=== PATIENT | female | born 1980 | race Caucasian/White ===

== ENCOUNTER 2021-10-15 07:29 | Day surgery (SDC) | payer BC ==
[2021-10-15] MEDS ORDERED: Transderm Scop 1.5MG Patch TOP ONE (07:30)
[2021-10-15] MEDS ORDERED: Lactated Ringers 1,000 ML IV SCH (08:00)
[2021-10-15] MEDS ORDERED: CLINDAMYCIN-D5W 900 MG/50 ML*** 900 MG/50 ML BAG IV SCH (09:00)
[2021-10-15] MEDS ORDERED: Xylocaine-Mpf 2% 5 Ml Vial ONE (09:01)
[2021-10-15] MEDS ORDERED: Versed 2 MG/2 ML Injection ONE (09:01)
[2021-10-15] MEDS ORDERED: DIPRIVAN 200 MG/20 ML IV ONE (09:01)
[2021-10-15] MEDS ORDERED: SUBLIMAZE 100 MCG/2 ML ONE (09:01)
[2021-10-15] MEDS ORDERED: Decadron 4 MG INJ ONE (09:27)
[2021-10-15] MEDS ORDERED: Zofran 4 MG/2 ML VIAL ONE (09:27)
[2021-10-15] MEDS ORDERED: TORAdol 30 mg Injection IV ONE (10:53)
[2021-10-15 11:07] VITALS: O2SAT 97
[2021-10-15 11:33] VITALS: BP 149/86; PULSE 70
--- NOTE | 2021-10-16 08:14 | OP ---
SURGERY DATE/TIME: 10/15/2021 0931 PREOPERATIVE DIAGNOSIS: Abnormal uterine bleeding. POSTOPERATIVE DIAGNOSIS: Abnormal uterine bleeding. PROCEDURES: 1) Hysteroscopy, D&C with endometrial ablation using NovaSure. 2) Removal of intrauterine device. SURGEON: Clem Purcell D.O. [place] PASTRY COOK: Ramona Patricia surgical aides teacher. ANESTHESIA: General. ESTIMATED BLOOD LOSS: Minimal. COMPLICATIONS: None. INDICATIONS: The risks, benefits, indications and alternatives of the procedure were reviewed with the patient prior to the procedure. The patient understood the risk of infection, bleeding, bowel injury, bladder injury, ureteral injury, uterine perforation, pelvic infection, thromboembolic disorder associated with the surgery however desires to have this surgery as a possible means to alleviate her current medical condition. DESCRIPTION OF PROCEDURE AND FINDINGS: At this point the patient is taken to the operating room, given general sedation, placed in the dorsal lithotomy position, prepped and draped in the usual sterile fashion. A weighted speculum is then placed in the patient's vagina and the anterior lip of the cervix is grasped with a single tooth tenaculum. Endocervical dilators were advanced through the endocervical canal as a means to dilate the cervix and at this point a 5 mm hysteroscope was then placed in through the endocervical region towards the fundal region where visualization appeared to be within normal limits with no gross abnormalities in the endometrial cavity. From this point the hysteroscope was then removed and the curette was then placed into the fundus of the uterus and all quadrants of the uterus were then curetted without complication with moderate endometrial tissue that was obtained. From this point hemostasis was obtained. At this point the NovaSure instrument was then placed in through the endocervical region towards the fundal region with a length of 6.5 cm and was engaged with a width of 3.7 cm. After engagement the machine was turned on for an ablative time of 52 seconds. At the completion of the ablation the instrument was disengaged and removed from the uterine cavity without complication. From this point all instruments were removed from the patient's vaginal region. The patient was then taken out of the dorsal lithotomy position, was taken out of anesthesia and was then taken to the recovery room in stable condition. All instruments and laps were accounted for x2. DESCRIPTION OF PROCEDURE AND FINDINGS: At this point the patient is taken to the operating room, given general sedation, placed in dorsal lithotomy position, prepped and draped in the usual sterile fashion. A weighted speculum is then placed in the patient's vagina and the anterior lip of the cervix is grasped with a single tooth tenaculum. Endocervical dilators were advanced through the endocervical canal as a means to dilate the cervix. At this point a 5 mm hysteroscope was then placed in through the fundus of the uterus where visualization revealed no gross abnormalities. From this point the hysteroscope was removed and the curette was then placed into the fundus of the uterus where curettage is performed in all quadrants of the uterus retrieving a mild amount of tissue. From this point hemostasis obtained. The NovaSure was taken and placed through the endocervical region toward the fundal region and retracted approximately 1 cm with a length of 6.5 cm and was engaged. After complete engagement the width was noted to be 4.4 cm. From this point the ablation had taken place with an ablative time of 1 minute and 3 seconds. At the completion of the ablation the instrument was disengaged and removed from the uterine cavity. From this point all instruments were removed from the patient's vaginal region. The patient was then taken out of the dorsal lithotomy position and was taken to the recovery room in stable condition. All instruments and laps were accounted for x2.
== END 2021-10-15 11:55 | disposition home or self-care (01) ==
LOC: SDC 07:29
PROVIDERS: ATTEND Obstetrics & Gynecology
DX: N93.9 Abnormal uterine and vaginal bleeding, unspecified (principal)
CPT/HCPCS: 58301; 58563; 81025; J1100; J1885; J2250; J2405; J2704; J3010; A9270-GY

== ENCOUNTER 2022-12-23 07:28 | Observation (INO) | payer BC, OTHER ==
[2022-12-23] MEDS ORDERED: Reglan 10 MG/2 ML IV ONE (07:56)
[2022-12-23] MEDS ORDERED: Transderm Scop 1.5MG Patch TOP PRN (07:56)
[2022-12-23] MEDS ORDERED: Pepcid 20 MG VIAL IV ONE (07:56)
[2022-12-23] MEDS ORDERED: CEFAZOLIN 2 GM-D5W BAG** 2 GM/50 ML ML IV SCH ×2 (08:00→08:30)
[2022-12-23 08:28] LABS: Absolute Neutrophil Ct (ANC) 5.52 x10^3/uL (1.4-6.9); BASOPHIL % 0.5 % (0.0-0.4); Basophil (Absolute #) 0.04 x10^3/uL (0-0.4); Eosinophil % 1.1 % (0.00-5.0); Eosinophil (Absolute #) 0.08 x10^3/uL (0-0.5); Hematocrit 37.1 % (35-47); Hemoglobin 12.5 g/dL (12.0-16.0); IMMATURE GRAN # 0.01 x10^3u/L (0.00-0.03); IMMATURE GRAN % 0.1 % (0.00-0.4); Lymphocyte (Absolute #) 1.33 x10^3/uL (1.0-4.6); Mean Cell Volume 90.3 fL (78-100); Mean Corpuscular Hemoglobin 30.4 pg (26-32); Mean Corpuscular Hgb Concent. 33.7 g/dL (32-36); Monocyte (Absolute #) 0.41 x10^3/uL (0.0-1.3); Monocytes % 5.5 % (0.0-12.0); Neutrophil % 74.8 % (36.0-66.0); Platelet Count 275 x10^3/uL (150-450); Red Blood Count 4.11 x10^6/uL (4.1-5.4); Red Cell Distribution Width 11.8 % (11.5-14.0); White Blood Count 7.4 x10^3/uL (4.0-10.5)
[2022-12-23 08:31] LABS: HCG URINE TEST NEGATIVE (NEGATIVE)
[2022-12-23 08:39] LABS: ALKALINE PHOSPHATASE 86 U/L (38-126); ANION GAP 10.2 MEQ/L (5-15); BLOOD UREA NITROGEN 9 mg/dL (7-17); CHLORIDE 106 mmol/L (98-107); Calcium 8.9 mg/dL (8.4-10.2); Carbon Dioxide 27 mmol/L (22-30); Creatinine 1 0.48 mg/dL (0.52-1.04); EST GLOMERULAR FILTRATION RATE > 60.0 ML/MIN; Glucose 89 mg/dL (74-106); Potassium 3.4 mmol/L (3.5-5.1); SGOT/AST 23 U/L (14-36); SGPT/ALT 25 U/L (0-35); SODIUM 140 mmol/L (137-145); Total Protein 6.6 g/dL (6.3-8.2)
[2022-12-23] MEDS: Lactated Ringers 1,000 ML IV SCH ×4 (08:56→23:24)
[2022-12-23 09:06] LABS: ABO TYPING A; Antibody Screen NEGATIVE (NEGATIVE); RH TYPING POSITIVE
[2022-12-23] MEDS ORDERED: Zemuron 100 MG/10 ML IJ ONE (10:24)
[2022-12-23] MEDS ORDERED: DIPRIVAN 200 MG/20 ML IV ONE (10:24)
[2022-12-23] MEDS ORDERED: BRIDION 200MG/2ML IV ONE (10:24)
[2022-12-23] MEDS ORDERED: SUBLIMAZE 100 MCG/2 ML IV ONE (10:24)
[2022-12-23] MEDS ORDERED: Sensorcaine 0.25% 10 ML IJ ONE (10:24)
[2022-12-23] MEDS ORDERED: Pre-Attached Lta Kit TP ONE (10:24)
[2022-12-23] MEDS ORDERED: OFIRMEV IV ONE (10:24)
[2022-12-23] MEDS ORDERED: Decadron 4 MG INJ IV ONE (10:24)
[2022-12-23] MEDS ORDERED: Zofran 4 MG/2 ML VIAL IV ONE (10:24)
[2022-12-23] MEDS ORDERED: Versed 2 MG/2 ML Injection IV ONE (10:24)
[2022-12-23] MEDS ORDERED: Astramorph-Pf 5 MG/10 ML IJ ONE (10:24)
[2022-12-23] MEDS ORDERED: Xylocaine-Mpf 2% 5 Ml Vial IJ ONE (10:24)
[2022-12-23] MEDS ORDERED: Lactated Ringers 1,000 ML IV ONE (10:24)
[2022-12-23] MEDS ORDERED: ROBINUL IV ONE (10:24)
[2022-12-23] MEDS ORDERED: EXPAREL 133 MG/10 ML VIAL IJ ONE (10:24)
[2022-12-23] MEDS ORDERED: Sodium Chloride 0.9% 10 ML FLUSH Syringe IJ PRN (14:45)
[2022-12-23] MEDS ORDERED: Narcan 0.4 MG/ML IV PRN (14:45)
[2022-12-23] MEDS ORDERED: DEMEROL 50 MG IV PRN (14:45)
[2022-12-23] MEDS ORDERED: PERCOCET TABLET 5/325MG PO PRN (14:45)
[2022-12-23] MEDS ORDERED: CLARITIN 10 MG PO PRN (14:45)
[2022-12-23] MEDS ORDERED: MORPHINE SULFATE 2 MG INJ IV PRN (14:45)
[2022-12-23] MEDS ORDERED: Zofran 4 MG/2 ML VIAL IV PRN (14:45)
[2022-12-23] MEDS ORDERED: Cyanocobalamin B-12 1000 MCG/ML IM SCH (15:00)
[2022-12-23] MEDS ORDERED: NON-FORMULARY ITEM (Semaglutide [Ozempic] 0.25 MG/0.368 ML Pen.Injctr) SQ SCH (15:00)
[2022-12-23] MEDS ORDERED: MEDICATION INTERVENTION MC SCH ×2 (15:15)
[2022-12-23] MEDS: BENADRYL 50 MG/ML IV PRN ×2 (16:47→23:44)
[2022-12-23 17:05] LABS: Appearance Cloudy (Clear); Bacteria None Seen /HPF (None Seen); Bilirubin Negative (Negative); Blood Moderate (Negative); Epithelial Cells None Seen /HPF (None Seen); Glucose, Urine Negative (Negative); Ketones 15 (Negative); Leukocyte Esterase Trace (Negative); Nitrite Negative (Negative); Ph 6.5 (4.6-8.0); Protein,Urine Dip Trace (Negative); RBC 51-100 /HPF (0-5); Specific Gravity 1.025 (1.005-1.030); Urobilinogen 0.2 mg/dL (0.2)
[2022-12-23] MEDS: CEFAZOLIN 2 GM-D5W BAG** 2 GM/50 ML ML IV SCH (17:57)
[2022-12-23 18:32] LABS: Hematocrit 37.1 % (35-47); Hemoglobin 12.2 g/dL (12.0-16.0); Mean Cell Volume 92.3 fL (78-100); Mean Corpuscular Hemoglobin 30.3 pg (26-32); Mean Corpuscular Hgb Concent. 32.9 g/dL (32-36); Mean Platelet Volume 10.4 fL (7.5-11.0); Platelet Count 283 x10^3/uL (150-450); Red Blood Count 4.02 x10^6/uL (4.1-5.4); Red Cell Distribution Width 11.9 % (11.5-14.0); White Blood Count 11.4 x10^3/uL (4.0-10.5)
[2022-12-23] MEDS: Nubain 10 MG/ML IV PRN (20:40)
[2022-12-23] MEDS: Docusate Sodium 100 MG PO SCH (22:29)
[2022-12-23] MEDS: Mylicon 80MG PO SCH (22:29)
[2022-12-23] MEDS: Reglan 10 MG PO SCH (22:29)
[2022-12-24] MEDS: Nubain 10 MG/ML IV PRN (03:43)
[2022-12-24] MEDS: CEFAZOLIN 2 GM-D5W BAG** 2 GM/50 ML ML IV SCH (03:44)
[2022-12-24 03:58] VITALS: RESP 16
[2022-12-24 04:54] LABS: Hematocrit 33.3 % (35-47); Hemoglobin 11.2 g/dL (12.0-16.0); Mean Cell Volume 89.8 fL (78-100); Mean Corpuscular Hemoglobin 30.2 pg (26-32); Mean Corpuscular Hgb Concent. 33.6 g/dL (32-36); Mean Platelet Volume 10.7 fL (7.5-11.0); Platelet Count 272 x10^3/uL (150-450); Red Blood Count 3.71 x10^6/uL (4.1-5.4); Red Cell Distribution Width 12.1 % (11.5-14.0); White Blood Count 6.3 x10^3/uL (4.0-10.5)
[2022-12-24 05:13] LABS: ALBUMIN 3.6 g/dL (3.5-5.0); ALKALINE PHOSPHATASE 80 U/L (38-126); BLOOD UREA NITROGEN 6 mg/dL (7-17); CHLORIDE 102 mmol/L (98-107); Calcium 8.6 mg/dL (8.4-10.2); Carbon Dioxide 28 mmol/L (22-30); EST GLOMERULAR FILTRATION RATE > 60.0 ML/MIN; Glucose 91 mg/dL (74-106); Potassium 3.2 mmol/L (3.5-5.1); SGOT/AST 22 U/L (14-36); SGPT/ALT 22 U/L (0-35); SODIUM 136 mmol/L (137-145)
[2022-12-24] MEDS: Reglan 10 MG PO SCH (05:58)
[2022-12-24] MEDS: Mylicon 80MG PO SCH (05:58)
[2022-12-24 06:53] VITALS: O2SAT 97
[2022-12-24 07:21] VITALS: BP 117/73; PULSE 59; TEMP 97.6
--- NOTE | 2022-12-24 07:43 | PCM.NOTE ---
Date and Time: 12/24/22 0738 Subjective Assessment: pod 1 sp lash b/l salpingectomy pt resting in bed and has been ambulating and tolerating diet vss afebrile abd; soft incision c/d/intact ext; no clubbing cyanosis or edema a/p sp laparoscopic supracervical hysterectomy b/l salpingectomy ' dc home today fu office in 2 wks Objective Exam Wound Assessment: Skin/Wound Assessment Wound/Incision Assessment Start: 12/23/22 14:04 Text: Status: Active Freq: Q6H Protocol: Document 12/24/22 02:00 LB (Rec: 12/24/22 02:48 LB [id number]) Wound/Incision Assessment Anterior Abdomen Wound Assessment Shift Assessment Wound Type Incision Wound Stage Non Pressure Wound Dressing Status Dry & Intact Drainage Amount None General Appearance Well Approximated,Open to air Wound Bed Greatest Portion Red (Granulation) Surrounding Tissue [place] Comment open to air x4 Wound Photo Photo Taken No OBJECTIVE DATA Vital Signs: Vital Signs - 24 hr Temp Pulse Resp BP Pulse Ox 12/24/22 07:20 97.6 F 59 L 16 117/73 97 12/24/22 06:51 97 12/24/22 03:57 96.0 F 67 16 126/73 96 12/23/22 23:59 97.5 F 56 L 18 121/75 97 12/23/22 19:00 97.5 F 61 16 117/71 98 12/23/22 15:30 97.6 F 76 16 130/63 93 L 12/23/22 14:36 97.6 F 58 L 16 121/73 94 L 12/23/22 14:25 59 L 16 128/82 96 12/23/22 13:41 97.6 F 63 16 122/80 96 12/23/22 13:39 97.2 F 57 L 18 122/80 94 L 12/23/22 13:37 97.8 F 63 16 122/50 93 L 12/23/22 08:47 97.8 F 71 18 130/86 97 12/23/22 08:34 97.8 F 71 18 130/86 97 Pain Assessment - Last Documented Pain Intensity 0 Intake and Output: Intake & Output 12/21/22 12/22/22 12/23/22 12/24/22 11:59 11:59 11:59 11:59 Intake Total 2356 Output Total 1050 Balance 1306 Weight 81.4 kg 81.4 kg Lab Results: Lab Results-Last 24 Hours 12/23/22 12/23/22 12/23/22 Range/Units 08:19 08:19 08:19 WBC 7.4 (4.0-10.5) x10^3/uL RBC 4.11 (4.1-5.4) x10^6/uL Hgb 12.5 (12.0-16.0) g/dL Hct 37.1 (35-47) % MCV 90.3 (78-100) fL MCH 30.4 (26-32) pg MCHC 33.7 (32-36) g/dL RDW 11.8 (11.5-14.0) % Plt Count 275 (150-450) x10^3/uL MPV 10.0 (7.5-11.0) fL Gran % 74.8 H (36.0-66.0) % Immature Gran % (Auto) 0.1 (0.00-0.4) % Nucleat RBC Rel Count 0.0 (0.00-0.1) % Eos # (Auto) 0.08 (0-0.5) x10^3/uL Immature Gran # (Auto) 0.01 (0.00-0.03) x10^3u/L Absolute Lymphs (auto) 1.33 (1.0-4.6) x10^3/uL Absolute Monos (auto) 0.41 (0.0-1.3) x10^3/uL Absolute Nucleated RBC 0.00 (0.00-0.01) x10^3u/L Lymphocytes % 18.0 L (24.0-44.0) % Monocytes % 5.5 (0.0-12.0) % Eosinophils % 1.1 (0.00-5.0) % Basophils % 0.5 (0.0-0.4) % Absolute Granulocytes 5.52 (1.4-6.9) x10^3/uL Basophils # 0.04 (0-0.4) x10^3/uL Sodium 140 (137-145) mmol/L Potassium 3.4 L (3.5-5.1) mmol/L Chloride 106 (98-107) mmol/L Carbon Dioxide 27 (22-30) mmol/L Anion Gap 10.2 (5-15) MEQ/L BUN 9 (7-17) mg/dL Creatinine 0.48 L (0.52-1.04) mg/dL Estimated GFR > 60.0 ML/MIN Glucose 89 (74-106) mg/dL Calcium 8.9 (8.4-10.2) mg/dL Total Bilirubin 0.60 (0.2-1.3) mg/dL AST 23 (14-36) U/L ALT 25 (0-35) U/L Alkaline Phosphatase 86 (38-126) U/L Serum Total Protein 6.6 (6.3-8.2) g/dL Albumin 4.0 (3.5-5.0) g/dL Urine Color (Yellow) Urine Appearance (Clear) Urine pH (4.6-8.0) Ur Specific [place] (1.005-1.030) Urine Protein (Negative) Urine Glucose (UA) (Negative) mg/dL Urine Ketones (Negative) Urine Blood (Negative) Urine Nitrite (Negative) Urine Bilirubin (Negative) Urine Urobilinogen (0.2) mg/dL Ur Leukocyte Esterase (Negative) U Hyaline Cast (Auto) (0-2) /LPF Urine Microscopic RBC (0-5) /HPF Urine Microscopic WBC (0-5) /HPF Ur Epithelial Cells (None Seen) /HPF Urine Bacteria (None Seen) /HPF Urine HCG, Qual (NEGATIVE) ABO Group A Rh Factor POSITIVE Antibody Screen NEGATIVE (NEGATIVE) 12/23/22 12/23/22 12/23/22 Range/Units 08:19 11:04 18:29 WBC 11.4 H (4.0-10.5) x10^3/uL RBC 4.02 L (4.1-5.4) x10^6/uL Hgb 12.2 (12.0-16.0) g/dL Hct 37.1 (35-47) % MCV 92.3 (78-100) fL MCH 30.3 (26-32) pg MCHC 32.9 (32-36) g/dL RDW 11.9 (11.5-14.0) % Plt Count 283 (150-450) x10^3/uL MPV 10.4 (7.5-11.0) fL Gran % (36.0-66.0) % Immature Gran % (Auto) (0.00-0.4) % Nucleat RBC Rel Count (0.00-0.1) % Eos # (Auto) (0-0.5) x10^3/uL Immature Gran # (Auto) (0.00-0.03) x10^3u/L Absolute Lymphs (auto) (1.0-4.6) x10^3/uL Absolute Monos (auto) (0.0-1.3) x10^3/uL Absolute Nucleated RBC (0.00-0.01) x10^3u/L Lymphocytes % (24.0-44.0) % Monocytes % (0.0-12.0) % Eosinophils % (0.00-5.0) % Basophils % (0.0-0.4) % Absolute Granulocytes (1.4-6.9) x10^3/uL Basophils # (0-0.4) x10^3/uL Sodium (137-145) mmol/L Potassium (3.5-5.1) mmol/L Chloride (98-107) mmol/L Carbon Dioxide (22-30) mmol/L Anion Gap (5-15) MEQ/L BUN (7-17) mg/dL Creatinine (0.52-1.04) mg/dL Estimated GFR ML/MIN Glucose (74-106) mg/dL Calcium (8.4-10.2) mg/dL Total Bilirubin (0.2-1.3) mg/dL AST (14-36) U/L ALT (0-35) U/L Alkaline Phosphatase (38-126) U/L Serum Total Protein (6.3-8.2) g/dL Albumin (3.5-5.0) g/dL Urine Color Yellow (Yellow) Urine Appearance Cloudy A (Clear) Urine pH 6.5 (4.6-8.0) Ur Specific [place] 1.025 (1.005-1.030) Urine Protein Trace A (Negative) Urine Glucose (UA) Negative (Negative) mg/dL Urine Ketones 15 A (Negative) Urine Blood Moderate A (Negative) Urine Nitrite Negative (Negative) Urine Bilirubin Negative (Negative) Urine Urobilinogen 0.2 (0.2) mg/dL Ur Leukocyte Esterase Trace A (Negative) U Hyaline Cast (Auto) 3-5 A (0-2) /LPF Urine Microscopic RBC 51-100 A (0-5) /HPF Urine Microscopic WBC 6-10 A (0-5) /HPF Ur Epithelial Cells None Seen (None Seen) /HPF Urine Bacteria None Seen (None Seen) /HPF Urine HCG, Qual NEGATIVE (NEGATIVE) ABO Group Rh Factor Antibody Screen (NEGATIVE) 12/24/22 12/24/22 Range/Units 04:30 04:30 WBC 6.3 (4.0-10.5) x10^3/uL RBC 3.71 L (4.1-5.4) x10^6/uL Hgb 11.2 L (12.0-16.0) g/dL Hct 33.3 L (35-47) % MCV 89.8 (78-100) fL MCH 30.2 (26-32) pg MCHC 33.6 (32-36) g/dL RDW 12.1 (11.5-14.0) % Plt Count 272 (150-450) x10^3/uL MPV 10.7 (7.5-11.0) fL Gran % (36.0-66.0) % Immature Gran % (Auto) (0.00-0.4) % Nucleat RBC Rel Count (0.00-0.1) % Eos # (Auto) (0-0.5) x10^3/uL Immature Gran # (Auto) (0.00-0.03) x10^3u/L Absolute Lymphs (auto) (1.0-4.6) x10^3/uL Absolute Monos (auto) (0.0-1.3) x10^3/uL Absolute Nucleated RBC (0.00-0.01) x10^3u/L Lymphocytes % (24.0-44.0) % Monocytes % (0.0-12.0) % Eosinophils % (0.00-5.0) % Basophils % (0.0-0.4) % Absolute Granulocytes (1.4-6.9) x10^3/uL Basophils # (0-0.4) x10^3/uL Sodium 136 L (137-145) mmol/L Potassium 3.2 L (3.5-5.1) mmol/L Chloride 102 (98-107) mmol/L Carbon Dioxide 28 (22-30) mmol/L Anion Gap 9.0 (5-15) MEQ/L BUN 6 L (7-17) mg/dL Creatinine 0.50 L (0.52-1.04) mg/dL Estimated GFR > 60.0 ML/MIN Glucose 91 (74-106) mg/dL Calcium 8.6 (8.4-10.2) mg/dL Total Bilirubin 0.40 (0.2-1.3) mg/dL AST 22 (14-36) U/L ALT 22 (0-35) U/L Alkaline Phosphatase 80 (38-126) U/L Serum Total Protein 6.0 L (6.3-8.2) g/dL Albumin 3.6 (3.5-5.0) g/dL Urine Color (Yellow) Urine Appearance (Clear) Urine pH (4.6-8.0) Ur Specific [place] (1.005-1.030) Urine Protein (Negative) Urine Glucose (UA) (Negative) mg/dL Urine Ketones (Negative) Urine Blood (Negative) Urine Nitrite (Negative) Urine Bilirubin (Negative) Urine Urobilinogen (0.2) mg/dL Ur Leukocyte Esterase (Negative) U Hyaline Cast (Auto) (0-2) /LPF Urine Microscopic RBC (0-5) /HPF Urine Microscopic WBC (0-5) /HPF Ur Epithelial Cells (None Seen) /HPF Urine Bacteria (None Seen) /HPF Urine HCG, Qual (NEGATIVE) ABO Group Rh Factor Antibody Screen (NEGATIVE) Assessment/Plan (1) Status post laparoscopic supracervical hysterectomy Current Visit: Yes Status: Acute Code(s): Z90.711 - ACQUIRED ABSENCE OF UTERUS WITH REMAINING CERVICAL STUMP (2) Chronic pelvic pain in female Current Visit: Yes Status: Acute (3) Hematosalpinx Current Visit: Yes Status: Acute Code(s): N83.6 - HEMATOSALPINX
--- NOTE | 2022-12-24 07:50 | PCM.DS ---
Discharge Summary Date of Admission: 12/23/22 07:28 Admitting Physician: PHOEBE BOLIVAR DO Primary Care Provider: SAL LUNA Allergies Allergies amoxicillin [From Augmentin] Allergy (Verified 12/23/22 08:20) Diarrhea clavulanic acid [From Augmentin] Allergy (Verified 12/23/22 08:20) Diarrhea miconazole [From Monistat 3] Allergy (Verified 12/23/22 08:20) burning and itching skin cleanser combination no.17 [From Monistat 3] Allergy (Verified 12/23/22 08:20) burning and itching lisinopril Adverse Reaction (Verified 12/23/22 08:20) [facility] Summary - Hospital Course Hospital Course: pt admitted on dec 23 for undergoing laparoscopic supracervical hysterectomy b/l salpingectomy secondary to chronic pelvic pain and was done so without complication. during postop period did well and was able ambulate and tolerate diet. incision clean dry and intact and stable labs with hgb at 11. pt was noted having potassium level at 3.2 and will go home on kcl 20meq bid 3 days. all questions answered to her satisfaction and was advised to fu in office in 2 wks - Vitals & Intake/Output Vital Signs: Vital Signs Temperature 97.6 F 12/24/22 07:20 Pulse Rate 59 L 12/24/22 07:20 Respiratory Rate 16 12/24/22 07:20 Blood Pressure 117/73 12/24/22 07:20 O2 Sat by Pulse Oximetry 97 12/24/22 07:20 Intake & Output: Intake & Output 12/21/22 12/22/22 12/23/22 12/24/22 11:59 11:59 11:59 11:59 Intake Total 2356 Output Total 1050 Balance 1306 Weight 81.4 kg 81.4 kg - Lab Result Diagrams: 12/24/22 04:30 12/24/22 04:30 Lab Results-Last 24 Hrs: Lab Results-Last 24 Hours 12/23/22 12/23/22 12/23/22 Range/Units 08:19 08:19 08:19 WBC 7.4 (4.0-10.5) x10^3/uL RBC 4.11 (4.1-5.4) x10^6/uL Hgb 12.5 (12.0-16.0) g/dL Hct 37.1 (35-47) % MCV 90.3 (78-100) fL MCH 30.4 (26-32) pg MCHC 33.7 (32-36) g/dL RDW 11.8 (11.5-14.0) % Plt Count 275 (150-450) x10^3/uL MPV 10.0 (7.5-11.0) fL Gran % 74.8 H (36.0-66.0) % Immature Gran % (Auto) 0.1 (0.00-0.4) % Nucleat RBC Rel Count 0.0 (0.00-0.1) % Eos # (Auto) 0.08 (0-0.5) x10^3/uL Immature Gran # (Auto) 0.01 (0.00-0.03) x10^3u/L Absolute Lymphs (auto) 1.33 (1.0-4.6) x10^3/uL Absolute Monos (auto) 0.41 (0.0-1.3) x10^3/uL Absolute Nucleated RBC 0.00 (0.00-0.01) x10^3u/L Lymphocytes % 18.0 L (24.0-44.0) % Monocytes % 5.5 (0.0-12.0) % Eosinophils % 1.1 (0.00-5.0) % Basophils % 0.5 (0.0-0.4) % Absolute Granulocytes 5.52 (1.4-6.9) x10^3/uL Basophils # 0.04 (0-0.4) x10^3/uL Sodium 140 (137-145) mmol/L Potassium 3.4 L (3.5-5.1) mmol/L Chloride 106 (98-107) mmol/L Carbon Dioxide 27 (22-30) mmol/L Anion Gap 10.2 (5-15) MEQ/L BUN 9 (7-17) mg/dL Creatinine 0.48 L (0.52-1.04) mg/dL Estimated GFR > 60.0 ML/MIN Glucose 89 (74-106) mg/dL Calcium 8.9 (8.4-10.2) mg/dL Total Bilirubin 0.60 (0.2-1.3) mg/dL AST 23 (14-36) U/L ALT 25 (0-35) U/L Alkaline Phosphatase 86 (38-126) U/L Serum Total Protein 6.6 (6.3-8.2) g/dL Albumin 4.0 (3.5-5.0) g/dL Urine Color (Yellow) Urine Appearance (Clear) Urine pH (4.6-8.0) Ur Specific [place] (1.005-1.030) Urine Protein (Negative) Urine Glucose (UA) (Negative) mg/dL Urine Ketones (Negative) Urine Blood (Negative) Urine Nitrite (Negative) Urine Bilirubin (Negative) Urine Urobilinogen (0.2) mg/dL Ur Leukocyte Esterase (Negative) U Hyaline Cast (Auto) (0-2) /LPF Urine Microscopic RBC (0-5) /HPF Urine Microscopic WBC (0-5) /HPF Ur Epithelial Cells (None Seen) /HPF Urine Bacteria (None Seen) /HPF Urine HCG, Qual (NEGATIVE) ABO Group A Rh Factor POSITIVE Antibody Screen NEGATIVE (NEGATIVE) 12/23/22 12/23/22 12/23/22 Range/Units 08:19 11:04 18:29 WBC 11.4 H (4.0-10.5) x10^3/uL RBC 4.02 L (4.1-5.4) x10^6/uL Hgb 12.2 (12.0-16.0) g/dL Hct 37.1 (35-47) % MCV 92.3 (78-100) fL MCH 30.3 (26-32) pg MCHC 32.9 (32-36) g/dL RDW 11.9 (11.5-14.0) % Plt Count 283 (150-450) x10^3/uL MPV 10.4 (7.5-11.0) fL Gran % (36.0-66.0) % Immature Gran % (Auto) (0.00-0.4) % Nucleat RBC Rel Count (0.00-0.1) % Eos # (Auto) (0-0.5) x10^3/uL Immature Gran # (Auto) (0.00-0.03) x10^3u/L Absolute Lymphs (auto) (1.0-4.6) x10^3/uL Absolute Monos (auto) (0.0-1.3) x10^3/uL Absolute Nucleated RBC (0.00-0.01) x10^3u/L Lymphocytes % (24.0-44.0) % Monocytes % (0.0-12.0) % Eosinophils % (0.00-5.0) % Basophils % (0.0-0.4) % Absolute Granulocytes (1.4-6.9) x10^3/uL Basophils # (0-0.4) x10^3/uL Sodium (137-145) mmol/L Potassium (3.5-5.1) mmol/L Chloride (98-107) mmol/L Carbon Dioxide (22-30) mmol/L Anion Gap (5-15) MEQ/L BUN (7-17) mg/dL Creatinine (0.52-1.04) mg/dL Estimated GFR ML/MIN Glucose (74-106) mg/dL Calcium (8.4-10.2) mg/dL Total Bilirubin (0.2-1.3) mg/dL AST (14-36) U/L ALT (0-35) U/L Alkaline Phosphatase (38-126) U/L Serum Total Protein (6.3-8.2) g/dL Albumin (3.5-5.0) g/dL Urine Color Yellow (Yellow) Urine Appearance Cloudy A (Clear) Urine pH 6.5 (4.6-8.0) Ur Specific [place] 1.025 (1.005-1.030) Urine Protein Trace A (Negative) Urine Glucose (UA) Negative (Negative) mg/dL Urine Ketones 15 A (Negative) Urine Blood Moderate A (Negative) Urine Nitrite Negative (Negative) Urine Bilirubin Negative (Negative) Urine Urobilinogen 0.2 (0.2) mg/dL Ur Leukocyte Esterase Trace A (Negative) U Hyaline Cast (Auto) 3-5 A (0-2) /LPF Urine Microscopic RBC 51-100 A (0-5) /HPF Urine Microscopic WBC 6-10 A (0-5) /HPF Ur Epithelial Cells None Seen (None Seen) /HPF Urine Bacteria None Seen (None Seen) /HPF Urine HCG, Qual NEGATIVE (NEGATIVE) ABO Group Rh Factor Antibody Screen (NEGATIVE) 12/24/22 12/24/22 Range/Units 04:30 04:30 WBC 6.3 (4.0-10.5) x10^3/uL RBC 3.71 L (4.1-5.4) x10^6/uL Hgb 11.2 L (12.0-16.0) g/dL Hct 33.3 L (35-47) % MCV 89.8 (78-100) fL MCH 30.2 (26-32) pg MCHC 33.6 (32-36) g/dL RDW 12.1 (11.5-14.0) % Plt Count 272 (150-450) x10^3/uL MPV 10.7 (7.5-11.0) fL Gran % (36.0-66.0) % Immature Gran % (Auto) (0.00-0.4) % Nucleat RBC Rel Count (0.00-0.1) % Eos # (Auto) (0-0.5) x10^3/uL Immature Gran # (Auto) (0.00-0.03) x10^3u/L Absolute Lymphs (auto) (1.0-4.6) x10^3/uL Absolute Monos (auto) (0.0-1.3) x10^3/uL Absolute Nucleated RBC (0.00-0.01) x10^3u/L Lymphocytes % (24.0-44.0) % Monocytes % (0.0-12.0) % Eosinophils % (0.00-5.0) % Basophils % (0.0-0.4) % Absolute Granulocytes (1.4-6.9) x10^3/uL Basophils # (0-0.4) x10^3/uL Sodium 136 L (137-145) mmol/L Potassium 3.2 L (3.5-5.1) mmol/L Chloride 102 (98-107) mmol/L Carbon Dioxide 28 (22-30) mmol/L Anion Gap 9.0 (5-15) MEQ/L BUN 6 L (7-17) mg/dL Creatinine 0.50 L (0.52-1.04) mg/dL Estimated GFR > 60.0 ML/MIN Glucose 91 (74-106) mg/dL Calcium 8.6 (8.4-10.2) mg/dL Total Bilirubin 0.40 (0.2-1.3) mg/dL AST 22 (14-36) U/L ALT 22 (0-35) U/L Alkaline Phosphatase 80 (38-126) U/L Serum Total Protein 6.0 L (6.3-8.2) g/dL Albumin 3.6 (3.5-5.0) g/dL Urine Color (Yellow) Urine Appearance (Clear) Urine pH (4.6-8.0) Ur Specific [place] (1.005-1.030) Urine Protein (Negative) Urine Glucose (UA) (Negative) mg/dL Urine Ketones (Negative) Urine Blood (Negative) Urine Nitrite (Negative) Urine Bilirubin (Negative) Urine Urobilinogen (0.2) mg/dL Ur Leukocyte Esterase (Negative) U Hyaline Cast (Auto) (0-2) /LPF Urine Microscopic RBC (0-5) /HPF Urine Microscopic WBC (0-5) /HPF Ur Epithelial Cells (None Seen) /HPF Urine Bacteria (None Seen) /HPF Urine HCG, Qual (NEGATIVE) ABO Group Rh Factor Antibody Screen (NEGATIVE) - Procedures and Test Procedures and Tests throughout Hospitalization: Therapy Orders & Screens 12/23/22 13:34 Oxygen Nasal Cannula 3 lpm Comment: FOR OXYGEN SAT <93% AND NOTIFY ANESTHESIA PROVIDER 12/23/22 13:37 Incentive Spirometry TID Comment: Discharge Exam Wound Assessment: Skin/Wound Assessment Wound/Incision Assessment Start: 12/23/22 14:04 Text: Status: Active Freq: Q6H Protocol: Document 12/24/22 02:00 LB (Rec: 12/24/22 02:48 LB [id number]) Wound/Incision Assessment Anterior Abdomen Wound Assessment Shift Assessment Wound Type Incision Wound Stage Non Pressure Wound Dressing Status Dry & Intact Drainage Amount None General Appearance Well Approximated,Open to air Wound Bed Greatest Portion Red (Granulation) Surrounding Tissue [place] Comment open to air x4 Wound Photo Photo Taken No Final Diagnosis/Problem List - Final Discharge Diagnosis/Problem (1) Status post laparoscopic supracervical hysterectomy Current Visit: Yes Status: Acute Code(s): Z90.711 - ACQUIRED ABSENCE OF UTERUS WITH REMAINING CERVICAL STUMP (2) Chronic pelvic pain in female Current Visit: Yes Status: Acute (3) Hematosalpinx Current Visit: Yes Status: Acute Code(s): N83.6 - HEMATOSALPINX - Discharge Disposition: Home, Self-Care Condition: Stable Prescriptions: New Oxycodone HCl/Acetaminophen [Percocet 5-325 mg Tablet] 1 each PO Q6HPRN PRN #20 tablet MDD 4 PRN Reason: Pain Potassium Chloride 20 meq PO BID 3 Days #6 tablet Oxycodone HCl/Acetaminophen [Percocet 5-325 mg Tablet] 1 each PO Q6H PRN PRN #20 tablet MDD 4 PRN Reason: Pain Potassium Chloride 20 meq PO BID 3 Days #6 tablet No Action Vitamin B Complex 1 each PO DAILY Multivitamin [Flintstones] 2 each PO DAILY Cholecalciferol (Vitamin D3) [Vitamin D3] 10 mcg PO DAILY Calcium Citrate/Vitamin D3 [Calcium Citrate - Vit D Caplet] 1 each PO DAILY Cyanocobalamin 1000 Mcg/ml [Cyanocobalamin B-12 1000 MCG/ML] 1,000 mcg IM UD Semaglutide [Ozempic] 0.5 mg SQ WEEKLY PARoxetine HCL [Paxil] 10 mg PO DAILY Follow up with: SAL LUNA NP [Primary Care Provider] - PHOEBE BOLIVAR DO [ACTIVE STAFF] - 2 weeks (no heavy lifting keep incision clean and dry call for any issues that may arise)
--- NOTE | 2022-12-24 08:23 | OP ---
SURGERY DATE/TIME: 12/23/2022 1035 PREOPERATIVE DIAGNOSIS: Chronic pelvic pain. POSTOPERATIVE DIAGNOSIS: Chronic pelvic pain with hematosalpinx bilaterally. PROCEDURES: 1) Laparoscopic supracervical hysterectomy. 2) Bilateral salpingectomy. SURGEON: Clem Purcell D.O. PROJECTION CAMERA OPERATOR: Nicole Corona infectious waste technician. ANESTHESIA: General. ESTIMATED BLOOD LOSS: Minimal. COMPLICATIONS: None. INDICATIONS: The risks, benefits, indications and alternatives of the procedure were reviewed with the patient prior to the procedure. The patient understood the risk of infection, bleeding, bowel injury, bladder injury, ureteral injury, pelvic infection and thromboembolic disorder associated with this surgery and desires to have this surgery as a possible means to alleviate her current medical condition. DESCRIPTION OF PROCEDURE AND FINDINGS: At this point the patient is taken to the operating room placed in the supine position where she was prepped and draped in the usual sterile fashion. At this point a 5 mm incision was made approximately 1 cm above the umbilicus and a 5 mm trocar and sleeve were advanced under direct visualization where pneumoperitoneum was obtained with 4 liters of CO2 gas. An additional incision was made on the left middle quadrant region where a 5 mm incision was made and 5 mm trocar and sleeve were advanced under direct visualization. An additional incision was made in the right middle quadrant region where a 5 mm incision was made and a 5 mm trocar and sleeve were advanced under direct visualization. Visualization of the pelvic area revealed normal anatomy with no gross abnormalities other than bilateral dilated fallopian tubes which appeared with bluish discoloration with the dimension of about 2 x 2 cm. From this point an additional incision was made where a 10 mm incision was made 2 cm above the symphysis pubis and a 10 mm trocar and sleeve were advanced under direct visualization. From this point the uterus is elevated using a grasper and the LigaSure was used and placed over the left utero-ovarian ligament where it was clamped, coagulated and cut and taken down to the round ligament towards the uterine vasculature where it was skeletonized and the uterine vasculature was clamped, coagulated and cut in two contiguous regions and a bladder flap developed on its side. The same procedure was performed on the right side where the right utero-ovarian ligament was clamped, coagulated and cut with a LigaSure, taken down to the round ligament towards the uterine vasculature where it was skeletonized on its side and a bladder flap developed on its side. The uterine vasculature was clamped, coagulated and cut in two contiguous regions and hemostasis was obtained. From this point, the SupraLoop was introduced through the 5 mm trocar site. The uterus is elevated and Hardy was taken at the junction between uterus and the cervix where the SupraLoop was attached tightly and was used to amputate where the cautery was turned on and was used to amputate the uterus from its cervical stump. There was no bleeding that was noted after amputation of the uterus from its cervical stump. From this point the Endobag was then placed in through the 10 mm incision and the uterus was placed in the Endobag and the incision was extended approximately 1 cm and the uterus was removed in its entirety through the 10 mm trocar site. From this point, the fascia was then closed at the 10 mm incision site with 0 Vicryl sutures and hemostasis was obtained. The skin was closed with 4-0 Monocryl suture. At this point the remaining pelvis appeared to be within normal limits with no bleeding that was noted. At this point all instruments were removed from the patient's abdominal region. The bilateral ovaries appeared to be within normal limits and were not removed during the procedure. The incisions were then subsequently closed with 4-0 Monocryl suture. At this point the patient was then taken out of anesthesia and was taken to the recovery room in stable condition. All instruments and laps were accounted for x2.
[2022-12-24] MEDS ORDERED: ENOXAPARIN SODIUM SQ SCH (09:00)
[2022-12-24] MEDS: Docusate Sodium 100 MG PO SCH (09:11)
[2022-12-24] MEDS ORDERED: NON-FORMULARY ITEM (Cholecalciferol (Vitamin D3) [Vitamin D3] 10 MCG Capsule) PO SCH (10:00)
[2022-12-24] MEDS ORDERED: VITAMIN D PO SCH (10:00)
[2022-12-24] MEDS ORDERED: CALCIUM CITRATE PO SCH (10:00)
[2022-12-24] MEDS ORDERED: [UNRECOGNIZED DRUG - OTHER] PO SCH (10:00)
[2022-12-24] MEDS ORDERED: Paxil 20 MG PO SCH (10:00)
[2022-12-24] MEDS ORDERED: THERAGRAN MULTIVITAMIN PO SCH (10:00)
[2022-12-24] MEDS ORDERED: HOLD NARCOTIC ANALGESICS AND SEDATIVES X24 HR MC SCH (10:00)
[2022-12-24] MEDS ORDERED: NON-FORMULARY ITEM (Vitamin B Complex [Vitamin B Complex] 1 EACH Tablet) PO SCH (10:00)
[2022-12-24] MEDS ORDERED: Calcium 500MG W/Vit D Tablet PO SCH (10:00)
[2022-12-24] MEDS ORDERED: NON-FORMULARY ITEM (Paroxetine Hcl [Paxil] 10 MG Tablet) PO SCH (10:00)
[2022-12-24] MEDS ORDERED: VITAMIN D3 PO SCH (10:00)
[2022-12-24] MEDS ORDERED: VITA-BEE WITH C PO SCH (10:00)
[2022-12-24] MEDS ORDERED: MULTIVITAMIN PO SCH (10:00)
[2022-12-24] MEDS ORDERED: Zofran 4 MG/2 ML VIAL IV PRN (14:42)
[2022-12-24] MEDS ORDERED: TORAdol 30 mg Injection IV PRN (14:45)
== END 2022-12-24 10:25 | disposition home or self-care (01) ==
LOC: MED SURG 07:28
PROVIDERS: ADMIT Obstetrics & Gynecology; ATTEND Obstetrics & Gynecology
DX: R10.2 Pelvic and perineal pain (principal); N83.6 Hematosalpinx; E87.6 Hypokalemia; Z20.828 Contact with and (suspected) exposure to other viral communicable diseases
CPT/HCPCS: 36415; 80053; 81001; 81025; 85025; 85027; 86850; 86900; 86901; 87086; 94762; G0378; J0690; J1100; J1200; J1650; J2250; J2274; J2300; J2405; J2704; J3010; A9270-GY